=== PATIENT | female | born 1985 | race Caucasian/White ===

== ENCOUNTER 2021-01-14 09:10 | Emergency (ER) | payer OTHER ==
[~2021-01-14 09:10] MED LIST: AUGMENTIN 875-1 EACH PO
== END 2021-01-14 11:18 | disposition home or self-care (01) ==
LOC: ER1 09:10
DX: M72.2 Plantar fascial fibromatosis (principal); Z88.1 Allergy status to other antibiotic agents; Z79.899 Other long term (current) drug therapy
CPT/HCPCS: 73630; 99283

== ENCOUNTER 2021-06-21 15:26 | Emergency (ER) | payer OTHER | END 2021-06-21 16:17 | disposition left against medical advice (07) | LOC: ER1 15:26 | DX: K08.89 Other specified disorders of teeth and supporting structures (principal); F17.210 Nicotine dependence, cigarettes, uncomplicated; Z88.1 Allergy status to other antibiotic agents | CPT/HCPCS: 99282 ==